=== PATIENT | male | born 1955 | race Caucasian/White ===

== ENCOUNTER → 2018-04-01 | Outpatient (CLI) | payer SELFPAY | END | disposition home or self-care (01) | LOC: RAD 18:37 | DX: I82.4Z2 Acute embolism and thrombosis of unspecified deep veins of left distal lower extremity (principal) | CPT/HCPCS: 93971 ==

== ENCOUNTER 2018-09-02 05:49 | Emergency (ER) | payer MEDICAID ==
[2018-09-02] MEDS: SOD CHLORIDE 0.9% 1,000 ML IV (06:55)
[2018-09-02] MEDS: INSULIN LISPRO 100 UNIT/ML VIAL SC (07:01)
[2018-09-02 07:24] LABS: ANION GAP 12 (5-13); BLOOD UREA NITROGEN 16 mg/dl (7-20); CALCIUM 8.9 mg/dl (8.4-10.2); CARBON DIOXIDE 27 mmol/L (21-31); CHLORIDE 101 mmol/L (97-110); Estimated GFR > 60 mL/min (>60); POTASSIUM 4.1 mmol/L (3.5-5.1); SODIUM 140 mmol/L (135-144)
[2018-09-02 07:38] LABS: GLUCOSE 433 mg/dl (70-220)
== END 2018-09-02 11:10 | disposition home or self-care (01) ==
LOC: E/R 05:49
DX: E10.65 Type 1 diabetes mellitus with hyperglycemia (principal); G62.9 Polyneuropathy, unspecified; R40.2142 Coma scale, eyes open, spontaneous, at arrival to emergency department; R40.2252 Coma scale, best verbal response, oriented, at arrival to emergency department; R40.2362 Coma scale, best motor response, obeys commands, at arrival to emergency department; Z79.4 Long term (current) use of insulin
CPT/HCPCS: 80048; 82962; 96360; 96372; 99284-25